=== PATIENT | female | born 1965 | race Caucasian/White ===

== ENCOUNTER 2019-02-03 11:16 | Outpatient (REF) | payer SELFPAY ==
--- NOTE | 2019-02-03 11:00 | PAPFT_PTH ---
PATIENT: Keyla Chatterjee LOC: [facility] U#:[id number] AGE/SX: 54/F ROOM: RE02/03/[address]: Reigna Mcmullen : 1965 BED: DIS: 02/03/2019 SPEC #: [id number] RECD: 02/03/19 18:13 STATUS: CORINNA RELinda #: [id number] PARMINDER: 02/03/19 11:[address]: Regina Mcmullen DEPT: [facility] Cytology RECD BY: Felipa Smith ENTERED: 02/03/19 18:13 SP TYPE: PAPFT CELIOHR DR: Luiz Wood Tissues: 1 - CX/ENDOCX FOR PAP SMEARS Procedures: PAP THIN PREP/UVM Screening HPV DNA PROBE Comments: [id number]
== END 2019-02-03 11:36 ==
LOC: LBN 11:16
PROVIDERS: PCP Family Medicine; Visit Provider Obstetrics & Gynecology Gynecology
DX: Z12.4 Encounter for screening for malignant neoplasm of cervix (principal); Z11.51 Encounter for screening for human papillomavirus (HPV)
CPT/HCPCS: 88142; 87624

== ENCOUNTER 2019-02-04 12:40 | Outpatient (CLI) | payer SELFPAY ==
--- NOTE | 2019-02-04 12:51 | DI.US_ITS ---
SYMPTOMS/DIAGNOSIS: BACK PAIN, HX ENLARGED UTERUS, M54.9 PELVIC ULTRASOUND: Pelvic ultrasound was performed transabdominally and transvaginally. Please see the accompanying data sheet for measurements of the pelvic structures. There are multiple uterine masses with appearance consistent with fibroids. The largest measuring about 6.8 cm in diameter in the posterior fundal region. Endometrial stripe is deformed and obscured by fibroids. Right ovary nonvisualized. The ovary very poorly seen only transabdominally. No free fluid identified in the cul-de-sac. Limited scanning of the kidneys shows an hyperechoic mass of the lower pole of the right kidney measuring up to about 5 cm in diameter. There may be mildly increased vascular flow in this area. There appear to be multiple nonobstructing calculi of the left kidney. No hydronephrosis seen. CONCLUSION: 1. Multiple uterine fibroids with grossly enlarged uterus. 2. Findings suggesting mass of the lower pole of the right kidney. Renal CT requested for further evaluation.
== END 2019-02-04 13:00 ==
PROVIDERS: PCP Family Medicine; Visit Provider Obstetrics & Gynecology Gynecology
DX: D25.9 Leiomyoma of uterus, unspecified (principal); N85.2 Hypertrophy of uterus; N20.0 Calculus of kidney; N28.89 Other specified disorders of kidney and ureter
CPT/HCPCS: 76830; 76856

== ENCOUNTER 2019-02-14 00:27 | Outpatient (CLI) | payer SELFPAY ==
--- NOTE | 2019-02-14 07:29 | DI.CT_ITS ---
SYMPTOM/DIAGNOSIS: F/U INCIDENTAL FINDING OF RT HYPOECHOIC RENAL MASS ON US, N28.[address]: Comparison is made with pelvic ultrasound of 02/04/19 which showed a hyperechoic mass at the lower pole of the right kidney. Images were performed and after IV contrast and without oral contrast. The mass seen on ultrasound is fatty density by CT, consistent with an angiomyolipoma. It measures 4.2 by 4.3 by 4.9 cm. It is exophytic and extends into the hilum. There are no invasive qualities. There is no hydronephrosis. Calcifications were questioned on the previous ultrasound but none are present by CT. There is an aberrant vein to the lower pole of the left kidney. The visualized portions of the lung bases are clear. The liver shows fatty infiltration. The gallbladder, spleen, pancreas and adrenals are unremarkable. The aorta is normal in diameter. IMPRESSION: Mass at the lower pole of the right kidney is consistent with an angiomyolipoma.
[2019-02-14 08:05] LABS: CREATININE 0.64 mg/dL (0.55-1.02)
[2019-02-14] MEDS: Omnipaque 350 MG/ML 100 ML BTL IJ (08:44)
== END 2019-02-14 00:47 ==
PROVIDERS: PCP Family Medicine; Visit Provider Obstetrics & Gynecology Gynecology
DX: N28.89 Other specified disorders of kidney and ureter (principal); D17.71 Benign lipomatous neoplasm of kidney; Z13.89 Encounter for screening for other disorder
CPT/HCPCS: 74170; 82565; J3490

== ENCOUNTER 2025-01-30 02:04 | Outpatient (CLI) | payer MEDICAID, SELFPAY ==
--- NOTE | 2025-01-30 | DI.US_ITS ---
Exam(s) US RENAL PELVIC TRANSVAGINAL EXAM: US RENAL PELVIC TRANSVAGINAL CLINICAL HISTORY: Uterine leiomyoma, D25.9; compare to 2019 imaging. TECHNIQUE: Ultrasound renal, pelvic, both abdmonal and tranvaginal was performed using standard prot ocol. COMPARISON: US US PELVIS TRANSVAGINAL from 02/04/[address] ABDOMEN WO/W from 02/14/2019 FINDINGS: RENAL: Renal size in cm: Right: 12.3 left: 13.2 Echogenicity: Normal. Hydronephrosis: No. Cyst or mass: Homogeneous echogenic solid mass noted at the lower pole of the right kidney, consisten t with an angiomyolipoma. Measured at 5 x 4 x 5.2 cm Nephrolithiasis: No. Other findings: None. Bladder:Normal. Ureteral jets: Right: Visualized and unremarkable. Left: Visualized and unremarkable. Prevoid vol:199 cc Postvoid vol: cc Color: Symmetric and uniform flow to both kidneys. PELVIC: UTERUS: The transabdominal images are limited by suboptimal urinary bladder distension. Position: Anteverted. Size: Roughly 9.8 by 8.7 x 12.8 cm. Endometrium: Mostly obscured by fibroids. Myometrium: Multiple fibroids. The largest measured at 7.7 cm projecting anteriorly. 4.6 centimeter posterior left-sided fibroid. Cervix: Unremarkable. OVARIES: Right: 1.4 x 1.2 x 1.1 cm Cyst or mass: None. Left: Not visualized Cyst or mass: None. DOPPLER: Color: Symmetric and uniform flow to both ovaries. No hyperemia. Duplex: Normal ovarian arterial waveforms visualized. CUL-DE-SAC: Free fluid: None. IMPRESSION: 1. Roughly stable size and appearance of previously noted echogenic, fatty echogenicity mass at the l ower pole of the right kidney, consistent with angiomyolipoma. No hydronephrosis. 2. The uterus is enlarged with multiple fibroids. The endometrial stripe is not well seen.. 3. Unremarkable right ovary. Left ovary was not visualized. DATA REPOSITORY:
== END 2025-01-30 02:24 ==
LOC: DI 02:05
PROVIDERS: PCP Family Medicine; Visit Provider Naturopath
DX: N85.2 Hypertrophy of uterus (principal)
CPT/HCPCS: 76770; 76830; 76856